=== PATIENT | male | born 1970 | race Caucasian/White ===

== ENCOUNTER 2022-09-08 08:00 | Outpatient (CLI) | payer BC | END 2022-09-08 08:01 | disposition home or self-care (01) | LOC: CT 08:00 | PROVIDERS: ATTEND Internal Medicine Gastroenterology | DX: R14.0 Abdominal distension (gaseous) (principal); K21.9 Gastro-esophageal reflux disease without esophagitis; K57.30 Diverticulosis of large intestine without perforation or abscess without bleeding; K59.00 Constipation, unspecified; Z86.010 Personal history of colon polyps | CPT/HCPCS: 74178 ==